=== PATIENT | female | born 1960 | race Caucasian/White ===

== ENCOUNTER 2021-08-31 15:16 | Inpatient (IN) | payer MEDICAID ==
[~2021-08-31] VITALS: Ht 167.6 cm; Wt 81.0 kg
--- NOTE | 2021-08-31 20:10 | NUR ---
PT ROOMED IN BED 15. PT HAS NO COMPLAINTS AT PRESENT BUT NOTES ANXIETY D/T TO HER RECENT ECHO RESULTS.
[2021-08-31] MEDS ORDERED: iohexol 350MG/ML 100ml bottle IV ONE (21:07)
[2021-08-31 21:09] LABS: BASOPHILS # (AUTO) 0.1 X10'3 (0-0.2); BASOPHILS % (AUTO) 1.3 % (0-1); EOSINOPHILS # (AUTO) 0.1 X10'3 (0-0.9); EOSINOPHILS % (AUTO) 2.1 % (0-6); HEMATOCRIT 40.1 % (35.0-45.0); HEMOGLOBIN 14.2 g/dl (12.0-16.0); LYMPHOCYTES # (AUTO) 1.4 X10'3 (1.1-4.8); LYMPHOCYTES % (AUTO) 25.4 % (21-51); MEAN CORPUSCULAR HEMOGLOBIN 31.2 PG (27.0-31.0); MEAN CORPUSCULAR HGB CONC 35.4 g/dL (33.0-36.5); MEAN PLATELET VOLUME 9.7 FL (7.4-10.4); MONOCYTES # (AUTO) 0.6 X10'3 (0-0.9); MONOCYTES % (AUTO) 11.6 % (2-12); NEUTROPHILS # (AUTO) 3.3 X10'3 (1.8-7.7); NEUTROPHILS % (AUTO) 59.6 % (42-75); PLATELET COUNT 180 X10'3 (140-440); RED BLOOD COUNT 4.56 X10'6 (4.20-5.60); RED CELL DISTRIBUTION WIDTH 12.8 % (11.5-14.5); WHITE BLOOD COUNT 5.6 X10'3 (4.5-11.0)
[2021-08-31 21:16] LABS: APTT 29 SECONDS (22-32)
[2021-08-31 21:18] LABS: ALANINE AMINOTRANSFERASE 35 U/L (12-78); ALBUMIN 4.1 G/DL (3.4-5.0); ALBUMIN/GLOBULIN RATIO 1.2 (1.1-1.5); ALKALINE PHOSPHATASE 100 IU/L (46-116); ANION GAP 10 (8-16); ASPARTATE AMINO TRANSFERASE 24 U/L (10-37); BILIRUBIN,TOTAL 0.8 MG/DL (0.1-1.0); BLOOD UREA NITROGEN 17 MG/DL (7-18); BUN/CREATININE RATIO 25.4 (6.6-38.0); CALCIUM 9.1 MG/DL (8.5-10.1); CHLORIDE 104 MMOL/L (99-107); CREATININE 0.67 MG/DL (0.40-0.90); GLUCOSE 95 MG/DL (70-104); MAGNESIUM 2.2 MG/DL (1.5-2.4); POTASSIUM 3.8 MMOL/L (3.5-5.1); SODIUM 141 MMOL/L (135-145); TOTAL CARBON DIOXIDE 26.6 MMOL/L (24-32); TOTAL PROTEIN 7.6 G/DL (6.4-8.2); eGFR 89 ML/MIN
[2021-08-31] MEDS ORDERED: mag hydrox/Alum hydrox/simeth 30ml oral suspension PO PRN (22:50)
[2021-08-31] MEDS ORDERED: magnesium hydroxide 30ml (MOM) UD suspension PO PRN (22:50)
[2021-08-31] MEDS ORDERED: magnesium 4gm in 100ml NS 100 ML IV PRN (22:50)
[2021-08-31] MEDS ORDERED: potassium CL 10mEq/100ml bag 100 ML IV PRN (22:50)
[2021-08-31] MEDS ORDERED: magnesium Cl slow-release 64mg tablet PO PRN (22:50)
[2021-08-31] MEDS ORDERED: ondansetron/PF 4mg/2ml inj IV PRN (22:50)
[2021-08-31] MEDS ORDERED: potassium Cl 20 mEq SR tablet PO PRN ×2 (22:50)
[2021-08-31] MEDS ORDERED: magnesium 2GM in 50ml NS 50 ML IV PRN (22:50)
[2021-08-31] MEDS: normal saline 1000ml 1,000 ML IV SCH (22:50)
[2021-08-31] MEDS ORDERED: acetaminophen 325mg tablet PO PRN (22:50)
[2021-08-31] MEDS ORDERED: ASPI-1071 PO (23:07)
[2021-08-31] MEDS ORDERED: heparin 25,000 UNIT/250ml bag 250 ML IV SCH ×2 (23:15)
[2021-08-31] MEDS ORDERED: heparin 10,000 units/1 ML INJ IV ONE ×2 (23:15)
--- NOTE | 2021-08-31 23:21 | NUR ---
Dr. Bean would like to be called with 0500 PTT result
[2021-08-31 23:48] LABS: BASOPHILS % (AUTO) 0.8 % (0-1); EOSINOPHILS # (AUTO) 0.1 X10'3 (0-0.9); EOSINOPHILS % (AUTO) 2.2 % (0-6); HEMATOCRIT 41.3 % (35.0-45.0); HEMOGLOBIN 14.1 g/dl (12.0-16.0); LYMPHOCYTES # (AUTO) 1.5 X10'3 (1.1-4.8); LYMPHOCYTES % (AUTO) 27.7 % (21-51); MEAN CORPUSCULAR HEMOGLOBIN 30.8 PG (27.0-31.0); MEAN CORPUSCULAR HGB CONC 34.1 g/dL (33.0-36.5); MEAN CORPUSCULAR VOLUME 90.5 FL (78-98); MEAN PLATELET VOLUME 9.8 FL (7.4-10.4); MONOCYTES # (AUTO) 0.7 X10'3 (0-0.9); MONOCYTES % (AUTO) 12.6 % (2-12); NEUTROPHILS % (AUTO) 56.7 % (42-75); PLATELET COUNT 187 X10'3 (140-440); RED BLOOD COUNT 4.57 X10'6 (4.20-5.60); RED CELL DISTRIBUTION WIDTH 13.1 % (11.5-14.5); WHITE BLOOD COUNT 5.3 X10'3 (4.5-11.0)
[2021-09-01] VITALS (18 sets, daily range): BP systolic 96–163; BP diastolic 59–84
[2021-09-01 05:25] LABS: BASOPHILS % (AUTO) 0.6 % (0-1); EOSINOPHILS # (AUTO) 0.1 X10'3 (0-0.9); EOSINOPHILS % (AUTO) 1.6 % (0-6); HEMATOCRIT 37.5 % (35.0-45.0); HEMOGLOBIN 13.1 g/dl (12.0-16.0); LYMPHOCYTES # (AUTO) 1.1 X10'3 (1.1-4.8); LYMPHOCYTES % (AUTO) 18.9 % (21-51); MEAN CORPUSCULAR HEMOGLOBIN 31.3 PG (27.0-31.0); MEAN CORPUSCULAR HGB CONC 34.9 g/dL (33.0-36.5); MEAN CORPUSCULAR VOLUME 89.6 FL (78-98); MEAN PLATELET VOLUME 9.8 FL (7.4-10.4); MONOCYTES # (AUTO) 0.7 X10'3 (0-0.9); MONOCYTES % (AUTO) 11.2 % (2-12); NEUTROPHILS % (AUTO) 67.7 % (42-75); PLATELET COUNT 174 X10'3 (140-440); RED BLOOD COUNT 4.19 X10'6 (4.20-5.60); WHITE BLOOD COUNT 5.9 X10'3 (4.5-11.0)
[2021-09-01 05:45] LABS: ALANINE AMINOTRANSFERASE 36 U/L (12-78); ALBUMIN 3.5 G/DL (3.4-5.0); ALBUMIN/GLOBULIN RATIO 1.1 (1.1-1.5); ALKALINE PHOSPHATASE 88 IU/L (46-116); ANION GAP 8 (8-16); ASPARTATE AMINO TRANSFERASE 28 U/L (10-37); BILIRUBIN,TOTAL 0.8 MG/DL (0.1-1.0); BLOOD UREA NITROGEN 16 MG/DL (7-18); BUN/CREATININE RATIO 24.6 (6.6-38.0); CALCIUM 8.5 MG/DL (8.5-10.1); CHLORIDE 106 MMOL/L (99-107); CREATININE 0.65 MG/DL (0.40-0.90); GLUCOSE 112 MG/DL (70-104); MAGNESIUM 2.2 MG/DL (1.5-2.4); POTASSIUM 4.2 MMOL/L (3.5-5.1); SODIUM 140 MMOL/L (135-145); TOTAL CARBON DIOXIDE 25.7 MMOL/L (24-32); TOTAL PROTEIN 6.7 G/DL (6.4-8.2); eGFR > 90 ML/MIN
--- NOTE | 2021-09-01 05:56 | NUR ---
CALLED DR JOHNSON WITH PTT RESULTS. HE GAVE TELEPHONE ORDER TO KEEP PATIENT AT SET RATE AND STOPPING HEPARIN AND REMOVING IT AT EXACTLY 0800.
--- NOTE | 2021-09-01 06:57 | NUR ---
PER MYRIAM NIGHT NURSE, "DR. JOHNSON WANTS HEPARIN STOPPED AT 0800. PT GOING TO OR. "
[2021-09-01] MEDS: K and/or MAG REPLACEMENT MC SCH ×2 (08:00→20:00)
[2021-09-01] MEDS: docusate sod 100mg capsule PO SCH ×2 (08:00→20:00)
--- NOTE | 2021-09-01 08:07 | NUR ---
PT AMB TO BR [id number], TOLERATED WELL.
--- NOTE | 2021-09-01 10:54 | NUR ---
EEG in process at bedside.
[2021-09-01] MEDS ORDERED: nitroPRUSSIDE 0.2mg/mL in NS 100 ML IV PRN (11:10)
[2021-09-01] MEDS ORDERED: phenylephrine inj 50 MG in normal saline 250ml IV soln 245 ML IV PRN (11:10)
--- NOTE | 2021-09-01 11:38 | NUR ---
report called to or.
[2021-09-01] MEDS ORDERED: heparin 10,000 units/1 ML INJ ONE (11:43)
[2021-09-01] MEDS ORDERED: LIDOcaine 1% 30ml preserv. free vial ONE (11:43)
[2021-09-01] MEDS ORDERED: protamine sulfate 10mg/ml inj. ONE (11:43)
[2021-09-01] MEDS ORDERED: morphine 4 MG/ML inj SYRINge IV PRN ×2 (12:10→13:25)
[2021-09-01] MEDS ORDERED: ringers solution, lacted 1,000 ML IV SCH ×2 (12:10→13:25)
[2021-09-01] MEDS ORDERED: proCHLORperazine 10 MG/2 ml inj IV PRN (12:10)
[2021-09-01] MEDS ORDERED: meperidine/PF 25mg/ml syringe IV PRN ×3 (12:10)
[2021-09-01] MEDS ORDERED: morphine 2 MG/ML inj. syringe IV PRN ×2 (12:10→13:25)
[2021-09-01] MEDS ORDERED: ondansetron/PF 4mg/2ml inj IV PRN ×2 (12:10→13:25)
[2021-09-01] MEDS ORDERED: midazolam 1 mg/ML 2ml injection ONE (12:41)
[2021-09-01] MEDS ORDERED: rocuronium 10mg/ml inj IV ONE (12:56)
[2021-09-01] MEDS ORDERED: propofol inj 20 ML IV ONE (12:56)
[2021-09-01] MEDS ORDERED: LIDOcaine 2% (20mg/ml) 5ml vial ONE (12:56)
[2021-09-01] MEDS ORDERED: ondansetron/PF 4mg/2ml inj ONE (12:58)
[2021-09-01] MEDS ORDERED: glycopyrrolate 0.2mg/ml inj ONE (13:03)
[2021-09-01] MEDS ORDERED: heparin 1,000unit/ml 10ml vial 10 ML ONE (13:03)
[2021-09-01] MEDS ORDERED: ceFAZolin 1000mg inj ONE ×2 (13:07)
[2021-09-01] MEDS ORDERED: PHENYLephrine 10mg/ml inj. 100 MG in normal saline 250ml IV soln 240 ML IV SCH (13:25)
[2021-09-01] MEDS ORDERED: hydrALAZINE 20mg/ml inj. IV PRN (13:25)
[2021-09-01] MEDS ORDERED: nitroPRUSSIDE sod inj. 50 MG in dextrose 5%-water 248 ML IV SCH (13:25)
[2021-09-01] MEDS ORDERED: fentaNYL/PF 50MCG/1 ML 2ML syringe IV PRN ×2 (13:25)
[2021-09-01] MEDS ORDERED: labetalol 20mg/4ml (5mg/ml) syringe IV PRN (13:25)
[2021-09-01] MEDS ORDERED: fentaNYL/PF 50MCG/1 ML 2ML syringe ONE (14:33)
--- NOTE | 2021-09-01 14:50 | NUR ---
Received from OR via [facility], accompanied by Anesthesiologist and report given by Anesthesiologist. PATIENT WAKING UP, NO S/S OF PAIN, V/S WNL, 20G TO RUE, ART LINE RUE, SCD ON, NEURO CHECKS WNL , PERRLA EYES, EQUAL STRENGTHS BUE BLE , TONGUE MIDLINE, JESSE TO RIGHT NECK CDI MINIMAL OUTPUT SCANT EDEMA TO SURGICAL SIGHT DRESSING CDI
--- NOTE | 2021-09-01 18:40 | NUR ---
PATIENTA&OX4, DENIES PAIN, V/S WNL, 20G TO RUE, ART LINE RUE, SCD ON, NEURO CHECKS WNL , PERRLA EYES, EQUAL STRENGTHS BUE BLE , TONGUE MIDLINE, JESSE TO RIGHT NECK CDI MINIMAL OUTPUT SCANT EDEMA TO SURGICAL SIGHT DRESSING CDI- PATIENT TAKEN TO ICU WITH ALL BELONGINGS AND HOOKED UP TO MONITORS IN ROOM AND REPORT GIVEN TO RN WHO HAS TAKEN OVER PATIENT CARE
--- NOTE | 2021-09-01 18:50 | NUR ---
Received from surgery via bed. Alert, awake, and verbally responsive. Speech clear and appropriate, no observed hoarseness. Right neck dressing dry and intact with JESSE drain in place and compressed, draining serosanguineous fluids. Able to move all extremities well, denies any numbness or tingling. Right radial A-line in place, connected to monitor, & functioning. Bilateral SCD's in place. Call light within reach. Bed in low position. SR's up.
[2021-09-02] VITALS (13 sets, daily range): BP systolic 115–156; BP diastolic 53–82
[2021-09-02 02:27] LABS: BASOPHILS % (AUTO) 0.3 % (0-1); EOSINOPHILS % (AUTO) 0 % (0-6); HEMATOCRIT 33.7 % (35.0-45.0); HEMOGLOBIN 11.5 g/dl (12.0-16.0); LYMPHOCYTES # (AUTO) 0.5 X10'3 (1.1-4.8); LYMPHOCYTES % (AUTO) 6.3 % (21-51); MEAN CORPUSCULAR HEMOGLOBIN 30.8 PG (27.0-31.0); MEAN CORPUSCULAR VOLUME 90.6 FL (78-98); MEAN PLATELET VOLUME 10.1 FL (7.4-10.4); MONOCYTES # (AUTO) 0.6 X10'3 (0-0.9); MONOCYTES % (AUTO) 8.1 % (2-12); NEUTROPHILS # (AUTO) 6.6 X10'3 (1.8-7.7); NEUTROPHILS % (AUTO) 85.3 % (42-75); PLATELET COUNT 163 X10'3 (140-440); RED BLOOD COUNT 3.72 X10'6 (4.20-5.60); RED CELL DISTRIBUTION WIDTH 12.9 % (11.5-14.5); WHITE BLOOD COUNT 7.7 X10'3 (4.5-11.0)
[2021-09-02 02:42] LABS: ALANINE AMINOTRANSFERASE 27 U/L (12-78); ALBUMIN 3.1 G/DL (3.4-5.0); ALBUMIN/GLOBULIN RATIO 1.1 (1.1-1.5); ALKALINE PHOSPHATASE 73 IU/L (46-116); ANION GAP 8 (8-16); ASPARTATE AMINO TRANSFERASE 21 U/L (10-37); BILIRUBIN,TOTAL 0.7 MG/DL (0.1-1.0); BLOOD UREA NITROGEN 12 MG/DL (7-18); BUN/CREATININE RATIO 20.7 (6.6-38.0); CALCIUM 7.7 MG/DL (8.5-10.1); CHLORIDE 109 MMOL/L (99-107); CREATININE 0.58 MG/DL (0.40-0.90); GLUCOSE 115 MG/DL (70-104); POTASSIUM 4.2 MMOL/L (3.5-5.1); SODIUM 141 MMOL/L (135-145); TOTAL CARBON DIOXIDE 24.5 MMOL/L (24-32); TOTAL PROTEIN 5.8 G/DL (6.4-8.2); eGFR > 90 ML/MIN
[2021-09-02 02:50] LABS: PLATELET ESTIMATE NORMAL; TOTAL CELLS COUNTED 100
[2021-09-02] MEDS: normal saline 1000ml 1,000 ML IV SCH (03:35)
[2021-09-02] MEDS: K and/or MAG REPLACEMENT MC SCH (08:00)
[2021-09-02] MEDS: docusate sod 100mg capsule PO SCH (09:06)
--- NOTE | 2021-09-02 09:46 | NUR ---
Patient seen by Dr Freeman, a line removed from right wrist JESSE drain removed from the right side of neck new dressing applied. Per MD patient can go home if she is able to take down regular food with out any problem, tray ordered.
== END 2021-09-02 11:43 | disposition home or self-care (01) | DRG 24 ==
LOC: ER 15:17 → UNDOADMIN 22:51 → ED HOLD 22:51 → ICU 2S 09-01 19:19
PROVIDERS: ADMIT Internal Medicine; ATTEND Family Medicine
PROC: B3251ZZ Computerized Tomography (CT Scan) of Bilateral Common Carotid Arteries using Low Osmolar Contrast (ICD-10-PCS; 2021-08-31)
PROC: B32G1ZZ Computerized Tomography (CT Scan) of Bilateral Vertebral Arteries using Low Osmolar Contrast (ICD-10-PCS; 2021-08-31)
PROC: B32R1ZZ Computerized Tomography (CT Scan) of Intracranial Arteries using Low Osmolar Contrast (ICD-10-PCS; 2021-08-31)
PROC: B3281ZZ Computerized Tomography (CT Scan) of Bilateral Internal Carotid Arteries using Low Osmolar Contrast (ICD-10-PCS; 2021-08-31)
PROC: 03UK0KZ Supplement Right Internal Carotid Artery with Nonautologous Tissue Substitute, Open Approach (ICD-10-PCS; 2021-09-01)
PROC: 03CK0ZZ Extirpation of Matter from Right Internal Carotid Artery, Open Approach (ICD-10-PCS; principal; 2021-09-01 12:35)
DX: I65.21 Occlusion and stenosis of right carotid artery (principal); I10 Essential (primary) hypertension; R01.1 Cardiac murmur, unspecified; Z20.822 Contact with and (suspected) exposure to COVID-19; Z79.82 Long term (current) use of aspirin; Z82.49 Family history of ischemic heart disease and other diseases of the circulatory system; R00.1 Bradycardia, unspecified
CPT/HCPCS: 36415; 70498; 80053; 83735; 84132; 85007; 85025; 85610; 85730; 87635; 93005; 95813; 95816; 96360; 99285; A4618; A6258; A7000; C1768; C9803; G0378; J0690; J1644; J2175; J2250; J2405; J2704; J2720; J3010; J3490; J7030; J7040; J7120; Q9967

== ENCOUNTER 2023-07-11 10:31 | Day surgery (SDC) | payer MEDICAID ==
[2023-07-05 15:09] LABS: BASOPHILS # (AUTO) 0.1 X10'3 (0-0.2); BASOPHILS % (AUTO) 1.1 % (0-1); EOSINOPHILS # (AUTO) 0.1 X10'3 (0-0.9); EOSINOPHILS % (AUTO) 1.6 % (0-6); HEMOGLOBIN 13.7 g/dl (12.0-16.0); LYMPHOCYTES # (AUTO) 1.1 X10'3 (1.1-4.8); LYMPHOCYTES % (AUTO) 20.1 % (21-51); MEAN CORPUSCULAR HEMOGLOBIN 31.2 PG (27.0-31.0); MEAN CORPUSCULAR HGB CONC 34.2 g/dL (33.0-36.5); MEAN PLATELET VOLUME 10.2 FL (7.4-10.4); MONOCYTES # (AUTO) 0.6 X10'3 (0-0.9); MONOCYTES % (AUTO) 11.1 % (2-12); NEUTROPHILS # (AUTO) 3.7 X10'3 (1.8-7.7); NEUTROPHILS % (AUTO) 66.1 % (42-75); PLATELET COUNT 179 X10'3 (140-440); RED CELL DISTRIBUTION WIDTH 13.4 % (11.5-14.5); WHITE BLOOD COUNT 5.5 X10'3 (4.5-11.0)
[2023-07-05 15:21] LABS: ALBUMIN 4.1 G/DL (3.4-5.0); ANION GAP 8 (8-16); APTT 31 SECONDS (22-32); BLOOD UREA NITROGEN 13 MG/DL (7-18); BUN/CREATININE RATIO 17.3 (10.0-20.0); CALCIUM 9.6 MG/DL (8.5-10.1); CHLORIDE 101 MMOL/L (99-107); CHOL/HDL RATIO 2.5 (0.00-4.99); CHOLESTEROL 226 MG/DL (0-200); CREATININE 0.75 MG/DL (0.40-0.90); GLUCOSE 96 MG/DL (70-104); HDL CHOLESTEROL 92 MG/DL (35-60); INR 0.9 INR; LDL CHOLESTEROL 111 MG/DL (50-100); POTASSIUM 3.9 MMOL/L (3.5-5.1); PROTHROMBIN TIME 10.1 SECONDS (9.0-12.0); SODIUM 137 MMOL/L (135-145); TOTAL CARBON DIOXIDE 28.3 MMOL/L (24-32); TRIGLYCERIDES 54 MG/DL (20-135); eGFR 78 ML/MIN
[~2023-07-11] VITALS: Ht 170.2 cm; Wt 92.0 kg
[2023-07-11] VITALS (10 sets, daily range): BP systolic 132–163; BP diastolic 69–89; PULSE 61–82; RESP 12–19; TEMP 97.8; O2SAT 93–97
[~2023-07-11 10:31] MED LIST: ASPI-1071 PO
[2023-07-11] MEDS ORDERED: normal saline 1,000 ML IV SCH (10:45)
[2023-07-11] MEDS ORDERED: LORazepam 0.5 MG tablet PO PRN (10:45)
[2023-07-11] MEDS ORDERED: diphenhydrAMINE 25mg capsule PO PRN (10:45)
[2023-07-11] MEDS ORDERED: LOSA25TA41 PO (11:03)
[2023-07-11] MEDS ORDERED: ASCO100T12 PO (11:03)
[2023-07-11] MEDS ORDERED: ASPI-1265 PO (11:03)
[2023-07-11] MEDS ORDERED: ZINC100T2 PO (11:04)
[2023-07-11] MEDS ORDERED: MULT-1085 PO (11:04)
[2023-07-11] MEDS ORDERED: heparin 1,000unit/ml 10ml vial 10 ML ONE (12:06)
[2023-07-11] MEDS ORDERED: LIDOcaine 1% (10mg/ml) 2ml vial ONE (12:06)
[2023-07-11] MEDS ORDERED: midazolam 1 mg/ML 2ml injection ONE (12:06)
[2023-07-11] MEDS ORDERED: verapamil 2.5 mg/ml inj IV ONE (12:06)
[2023-07-11] MEDS ORDERED: fentaNYL/PF 50MCG/1 ML 2ML syringe ONE (12:06)
[2023-07-11] MEDS ORDERED: iohexol 350MG/ML 100ml bottle IV ONE (12:07)
[2023-07-11] MEDS ORDERED: nitroGLYCERIN 500mcg/5mL D5W 5 ML IV ONE (12:07)
[2023-07-11] MEDS ORDERED: iohexol 350 MG/ML 50ML vial IV ONE (13:45)
[2023-07-11 14:27] LABS: ISTAT HGB ART 11.9 g/dl (12.0-16.0); ISTAT Hct ART 35 %PCV (35-45); ISTAT O2 SATURATION ARTERIAL 93 % (95-98); ISTAT SOURCE ART
[2023-07-12 06:01] LABS: ISTAT HGB MIX 12.6 g/dl (12.0-16.0); ISTAT Hct MIX 37 %PCV (35-45); ISTAT O2 SATURATION MIX VENOUS 61 % (60-80); ISTAT SOURCE VEN
== END 2023-07-11 17:14 | disposition home or self-care (01) ==
LOC: SSTAY O 10:31
PROVIDERS: ATTEND Student in an Organized Health Care Education/Training Program
DX: I35.0 Nonrheumatic aortic (valve) stenosis (principal); I25.10 Atherosclerotic heart disease of native coronary artery without angina pectoris; E78.5 Hyperlipidemia, unspecified; G47.33 Obstructive sleep apnea (adult) (pediatric); I10 Essential (primary) hypertension; I65.29 Occlusion and stenosis of unspecified carotid artery; Z86.73 Personal history of transient ischemic attack (TIA), and cerebral infarction without residual deficits; Z79.82 Long term (current) use of aspirin; Z79.899 Other long term (current) drug therapy
CPT/HCPCS: 36415; 80048; 80061; 82803; 85014; 85025; 85610; 85730; 93005; 93456; 99152; 99153; J1644; J2250; J3010; J3490; J7030; Q0163; Q9967; A6258; A6402; A6449; C1751; C1894

== ENCOUNTER 2024-12-22 13:28 | Emergency (ER) | payer MEDICARE, MEDICAID ==
[~2024-12-22] VITALS: Ht 167.6 cm; Wt 96.0 kg
[~2024-12-22 13:28] MED LIST changes: -ASPI-1071 PO; +ASPI-1265 PO; +LOSA25TA41 PO
[2024-12-22 13:31] VITALS: TEMP 98.9
--- NOTE | 2024-12-22 13:35 | ELECTROCARDIOGRAPH REPORT ---
[facility] Test Date: 2024-12-22 Test Time: 13:32:35 Pat Name: CIERA STONE Department: [facility]-ER Patient ID: [facility]-[id number] Room: Gender: F Intake Specialist: : 1960 Requested By: KAROLINA NUNEZ Order Number: [id number] Reading MD: Dr. KATHLEEN Vogt Measurements Intervals [place] Rate: 90 P: 82 NH: 164 QRS: 80 QRSD: 79 T: 69 QT: 355 QTc: 435 Interpretive Statements Sinus rhythm Atrial premature complex Baseline wander in lead(s) II,III,aVF,V3 Electronically Signed On 12-22-2024 14:09:[address] KATHLEEN Vogt Please click the below link to view image of tracing.
--- NOTE | 2024-12-22 13:59 | Physician Documentation ---
History of Present Illness ~ Chief Complaint: Shortness of Breath Stated Complaint: CHEST WALL PAIN Time Seen by MD: 13:35 Mode of Arrival: EMS, Stretcher HPI 64-year-old female who presents to the emergency department for increasing pain, patient states on December 09, 2024 she had her aortic valve replaced, she has been doing well with recovery, she was noted to have a fever of 100.6 today of the care facility with increasing pain. Timing/Duration: days Severity: moderate Activities at Onset: light exertion, rest Risk Factors: recent surgery Prehospital Care: furosemide Prior Episode/Exposure: no prior episodes Modifiying Factors: Improves with: exertion Associated Symptoms: fever, pain Discomfort Quality/Severity: moderate Chest Pain Location: substernal Cough Severity: Reports: no cough Medication Reconciliation Allergies: Coded Allergies: No Known Allergies (Unverified , 08/31/21) Scheduled Aspirin (Aspirin), 1 TAB.CHEW PO DAILY, (Reported) Losartan Potassium (Losartan Potassium), 50 MG PO DAILY, (Reported) Past Medical History Past Medical History: *CARDIOVASCULAR* Past Surgical History: no surgical history Alcohol Use: None Drug Use: none Lives with: Alone Lives In: Home Review of Systems All Other Systems at this time: Reviewed and Negative Constitutional: Reports: see HPI, fever Cardiovascular: Reports: see HPI, chest pain Physical Exam Vital Signs: RN Vital Signs have been reviewed: Yes, Temperature: 98.9, Heart Rate: 95, Respiratory Rate: 16, BP: 110/56, Pulse Oximetry: 95, Weight: 96.000 Oxygen Flow Rate: 0 Pulse Oximetry Reflects: adequate oxygenation General Appearance: alert, no apparent distress; No: confused Neck: normal inspection; No: tender Respiratory: lungs clear, normal breath sounds, no respiratory distress Chest: no accessory muscle use, chest non-tender Cardiovascular: normal peripheral pulses, regular rate, rhythm, no edema, no JVD Gastrointestinal: normal palpation, non-tender, bowels sounds present Extremities: normal inspection; No: clubbing Skin: normal color, warm/dry; No: rash Progress Results/Orders Results/Orders Orders - KAROLINA NUNEZ DO Electrocardiogram (12/22/24 13:30) Chest,Single View (12/22/24 13:30) Culture Blood (12/22/24 13:54) Completed Orders - KAROLINA NUNEZ DO Electrocardiogram (12/22/24 13:30) Chest,Single View (12/22/24 13:30) Cbc/Diff (12/22/24 13:54) CMP (12/22/24 13:54) ESR (12/22/24 13:54) C-Reactive Protein (12/22/24 13:54) Lacticsepsis (12/22/24 13:54) Vital Signs 12/22/24 12/22/24 12/22/24 12/22/24 13:31 13:40 14:05 15:14 Temp 98.9 Pulse 95 94 89 Resp 16 16 15 15 B/P (MAP) 110/56 113/66 (82) 139/102 (114) Pulse Ox 95 95 97 O2 Flow Rate 0 3.0 Laboratory Tests Test 12/22/24 14:15 White Blood Count 13.6 H Red Blood Count 3.46 L Hemoglobin 10.3 L Hematocrit 30.7 L Mean Corpuscular Volume 88.8 Mean Corpuscular Hemoglobin 29.8 Mean Corpuscular Hemoglobin Concent 33.6 Red Cell Distribution Width 14.1 Platelet Count 319 Mean Platelet Volume 8.7 Neutrophils (%) (Auto) 88.5 H Lymphocytes (%) (Auto) 4.3 L Monocytes (%) (Auto) 6.1 Eosinophils (%) (Auto) 0.2 Basophils (%) (Auto) 0.9 Neutrophils # (Auto) 12.1 H Lymphocytes # (Auto) 0.6 L Monocytes # (Auto) 0.8 Eosinophils # (Auto) 0.0 Basophils # (Auto) 0.1 CBC Comment Erythrocyte Sedimentation Rate 60 H Sodium Level 139 Potassium Level 4.4 Chloride Level 102 Carbon Dioxide Level 28.3 Anion Gap 9 Blood Urea Nitrogen 14 Creatinine 1.03 H Estimated GFR/1.73 m2 54 BUN/Creatinine Ratio 13.6 Glucose Level 156 H Lactic Acid Level 1.7 Calcium Level 9.0 Total Bilirubin 1.0 Aspartate Amino Transf (AST/SGOT) 23 Alanine Aminotransferase (ALT/SGPT) 28 Alkaline Phosphatase 122 H C-Reactive Protein 5.43 H Total Protein 6.9 Albumin 3.4 Globulin 3.5 Albumin/Globulin Ratio 1.0 L Chemistry Comments EKG/XRAY/CT/US/VASC/MRI EKG : Additional Comment Sinus rhythm rate of 90 normal axis normal interval, Pac, no ST segment depressions or elevations. Chest X-Ray : Additional Comments [facility] [address] , [place], [facility] [id number] DIAGNOSTIC RADIOLOGY Patient: CIERA MEJÍA Medical Record: [id number] HOSPITAL : 1960, Age: 64 Sex: Female Location: ER Patient Status: [facility] Service Date/Time: 12/22/241329 Ordering Physician: KAROLIAN NUNEZ DO Exam: CHEST,SINGLE VIEW CHEST RADIOGRAPH Indication: CWP Technique: Single frontal view of the chest was obtained Comparison: DI CHEST,SINGLE VIEW on DOS: 12/12/24, DI CHEST,SINGLE VIEW on DOS: 12/11/24, DI CHEST,SINGLE VIEW on DOS: 12/10/24, DI CHEST,SINGLE VIEW on DOS: 12/09/24 FINDINGS: Lines and Tubes: None Lungs: No focal consolidation. Pleura: No effusion. No pneumothorax. Cardiomediastinal contours: Cardiomegaly Bones: No acute osseous abnormality. IMPRESSION: Cardiomegaly with CHF. Median sternotomy. Electronically Signed by:TROY PORTER MD Date & Time: 12/22/24 1414 Dictated by: TROY PORTER MD Dictation date and time: 12/22/24 1352 Primary Care Provider: NO PRIMARY CARE PROVIDER cc: KAROLINA NUNEZ DO ~ Consults/PCP Consults/PCP : Additional Comment Consult with cardiovascular surgery, recommend broad-spectrum antibiotic coverage, chest x-ray was reviewed did not show any obvious infiltrate, discharge plan for home outpatient follow up or return to ER for worsening symptoms Heart Score: Heart Score Response (Comments) Value History Slightly Suspicious 0 EKG Normal 0 Age >65 2 Risk Factors No known risk factors 0 Troponin Normal limit 0 Total 2 Medical Decision Making Differential Dx:Considerations: Include: cardiogenic shock, CHF, myocardial i nfarction, pneumonia, pneumonitis, pneumothorax, pulmonary embolism, respiratory distress, respiratory failure Departure Disposition: 01 HOME / SELF CARE / HOMELESS Impression: Primary Impression: Acute upper respiratory infection Additional Impression: Respiratory distress Condition: Improved Referrals: NO PRIMARY CARE PROVIDER (PCP) Prescriptions Cephalexin*Monohydrate* (Keflex*) 500 Mg Capsule 1 CAP PO Q6H for 7 Days, #28 CAP Prov: KAROLINA NUNEZ DO 12/22/24 Education Educated: Patient Educated regarding: diagnosis, treatment Signature Scribe Signature: None Attestation: Dictated by myself KAROLINA NUNEZ DO December 22, 2024 13:59
--- NOTE | 2024-12-22 14:16 | RADIOLOGY REPORT ---
CHEST RADIOGRAPH Indication: CWP Technique: Single frontal view of the chest was obtained Comparison: DI CHEST,SINGLE VIEW on DOS: 12/12/24, DI CHEST,SINGLE VIEW on DOS: 12/11/24, DI CHEST,SINGL E VIEW on DOS: 12/10/24, DI CHEST,SINGLE VIEW on DOS: 12/09/24 FINDINGS: Lines and Tubes: None Lungs: No focal consolidation. Pleura: No effusion. No pneumothorax. Cardiomediastinal contours: Cardiomegaly Bones: No acute osseous abnormality. IMPRESSION: Cardiomegaly with CHF. Median sternotomy.
--- NOTE | 2024-12-22 14:20 | PROGRESS NOTE ---
Progress Note CV Providers to CC ~ Progress Note: Abby is now approximately two weeks status post aortic valve replacement via limited upper sternotomy. She noted increasing pain this morning in rehab. Interestingly she tells me that she was given another [place] prior to being transported to the ED. The pain now is back to its baseline. In addition she is noted to have a very low-grade fever of 100.6 F. She denies any significant difficulties with fever or cough. She has had no sputum production. She does tell me that she has an occasional chill. She denies PND orthopnea or peripheral edema. Overall she has been doing well in rehab and feels that she is ready for discharge to home. Unfortunately she does not have a whole lot of help there. She denies palpitations. She has had no sensation of a sternal instability or clicking. Central Line/PICC still needed: N\A [place] Indications Met/Not Met: F/C Indications Not Met Antibiotics Ordered?: No Objective Vitals Vital Signs Date Time Temp Pulse Resp B/P (MAP) Pulse Ox O2 Delivery O2 Flow Rate FiO2 12/22/24 14:05 94 15 113/66 (82) 95 12/22/24 13:31 98.9 0 Objective HEENT is benign. Neck is supple with midline trachea. Carotids are 2+ without bruits. She has no JVD sitting upright. Chest shows her upper sternotomy incision to be healing satisfactorily. There was no sternal instability. No erythema or discharge. Cardiac exam reveals a regular rate and rhythm with a very soft systolic flow murmur through the valve. Robertson S2. No rubs present. Lungs were clear with good aeration throughout. No wheezes, rales or rhonchi. Abdomen is soft and nontender. No peripheral edema. Pulses are 2+ in the radial and posterior tibials. Problem\Assessment\Plan Additional Plan Ms. Church appears to be doing well following aortic valve replacement. I believe that her pain was primarily due to timing of her pain meds. These should be given an as-needed basis rather than waiting until the pain has become severe. Low-grade fever not particularly distressing. No evidence of infection with regards to her sternal incision or her lungs. We will await results of her labs especially her UA.. If the labs are not significantly abnormal she should be able to go back to rehab or home. We will see her back in our office in one week for recheck. CHRISTINA TORRES III, MD December 22, 2024 14:20
[2024-12-22 14:34] LABS: BASOPHILS # (AUTO) 0.1 X10'3 (0-0.2); BASOPHILS % (AUTO) 0.9 % (0-1); EOSINOPHILS % (AUTO) 0.2 % (0-6); HEMATOCRIT 30.7 % (35.0-45.0); HEMOGLOBIN 10.3 g/dl (12.0-16.0); LYMPHOCYTES # (AUTO) 0.6 X10'3 (1.1-4.8); LYMPHOCYTES % (AUTO) 4.3 % (21-51); MEAN CORPUSCULAR HEMOGLOBIN 29.8 PG (27.0-31.0); MEAN CORPUSCULAR HGB CONC 33.6 g/dL (33.0-36.5); MEAN CORPUSCULAR VOLUME 88.8 FL (78-98); MEAN PLATELET VOLUME 8.7 FL (7.4-10.4); MONOCYTES # (AUTO) 0.8 X10'3 (0-0.9); MONOCYTES % (AUTO) 6.1 % (2-12); NEUTROPHILS # (AUTO) 12.1 X10'3 (1.8-7.7); NEUTROPHILS % (AUTO) 88.5 % (42-75); PLATELET COUNT 319 X10'3 (140-440); RED BLOOD COUNT 3.46 X10'6 (4.20-5.60); RED CELL DISTRIBUTION WIDTH 14.1 % (11.5-14.5); WHITE BLOOD COUNT 13.6 X10'3 (4.5-11.0)
[2024-12-22 14:49] LABS: ALANINE AMINOTRANSFERASE 28 U/L (12-78); ALBUMIN 3.4 G/DL (3.4-5.0); ALKALINE PHOSPHATASE 122 IU/L (46-116); ANION GAP 9 (8-16); ASPARTATE AMINO TRANSFERASE 23 U/L (10-37); BLOOD UREA NITROGEN 14 MG/DL (7-18); BUN/CREATININE RATIO 13.6 (10.0-20.0); C-REACTIVE PROTEIN 5.43 MG/DL (0.0-0.5); CHLORIDE 102 MMOL/L (99-107); CREATININE 1.03 MG/DL (0.40-0.90); GLUCOSE 156 MG/DL (70-104); POTASSIUM 4.4 MMOL/L (3.5-5.1); SODIUM 139 MMOL/L (135-145); TOTAL CARBON DIOXIDE 28.3 MMOL/L (24-32); TOTAL PROTEIN 6.9 G/DL (6.4-8.2); eCRCL 51 ML/MIN; eGFR 54 ML/MIN
[2024-12-22] MEDS ORDERED: CEPH-585 PO (15:49)
[2024-12-22] MEDS: cephalexin 250mg capsule PO ONE (15:52)
[2024-12-22 15:53] VITALS: BP 161/118; PULSE 90; RESP 15; O2SAT 97
== END 2024-12-22 16:07 | disposition home or self-care (01) ==
LOC: ER 13:28
DX: J06.9 Acute upper respiratory infection, unspecified (principal); I50.9 Heart failure, unspecified; Z79.82 Long term (current) use of aspirin
CPT/HCPCS: 36415; 71045; 80053; 83605; 85025; 85651; 86140; 87040; 93005; 99285; A4620